=== PATIENT | female | born 1960 | race Asian ===

== ENCOUNTER → 2016-11-04 | Outpatient (CLI) | payer OTHER | LOC: FIMAGING 12:33 | PROVIDERS: ATTEND Physician Assistant | DX: R93.422 Abnormal radiologic findings on diagnostic imaging of left kidney (principal); B18.1 Chronic viral hepatitis B without delta-agent ==

== ENCOUNTER → 2016-12-17 | Outpatient (CLI) | payer OTHER ==
[~2016-12-17] MED LIST: IOPAMIDOL (ISOVUE-300) 100 ML BTL ONE
== END ==
LOC: FIMAGING 14:55
PROVIDERS: ATTEND Physician Assistant
DX: D18.03 Hemangioma of intra-abdominal structures (principal); B18.1 Chronic viral hepatitis B without delta-agent
CPT/HCPCS: Q9967